=== PATIENT | male | born 1995 | race Caucasian/White ===

== ENCOUNTER 2023-10-20 11:25 | Emergency (ER) | payer OTHER, SELFPAY ==
[2023-10-20 11:28] VITALS: BP 140/73; PULSE 112; TEMP 36.4; O2SAT 99; BMI 36.3
--- NOTE | 2023-10-20 11:31 | XR_ITS ---
The [address] [id number] Patient Name: JOVAN MARTINEZ MRN: [id number] date: 1995 Sex: M Assigned Patient Location: ER Current Patient Location: Accession/Order Number: [id number] Exam Date: 10/20/2023 11:36 Report Date: 10/20/2023 12:05 At the request of: NIKKI GAMBOA Procedure: XR hand RT min 3V PROCEDURE: XR hand RT min 3V HISTORY: pain, injury boxing ; pain and swelling of right hand COMPARISON: None. FINDINGS: BONES:Slightly oblique fracture through mid diaphysis of fourth metacarpal with posterior displacement of the distal fragment two thirds of the bone width. No medial or lateral deviation. No intra-articular extension. SOFT TISSUES:No visible soft tissue swelling. EFFUSION:None visible. OTHER: Negative. XR/XR hand RT min 3V IMPRESSION: 1. Acute, displaced fracture of the fourth metacarpal. Electronically authenticated by: ERASMO REYES Date: 10/20/2023 12:05
--- NOTE | 2023-10-20 11:34 | ED_ITS ---
HPI HPI - Extremity Injury (Upper) General Chief Complaint: Extremity Injury, Upper Stated Complaint: HAND INJURY Time Seen by Provider: 10/20/23 11:30 Source: patient Mode of arrival: walk-in Limitations: no limitations History of Present Illness HPI narrative: 28-year-old male presents for right hand pain. About a week ago he states he was messing around and punched a piece of wood. He complains of pain on the ulnar side of his right hand and he is right-handed. It has been swollen and throbbing and the pain is moderate. No other injury was sustained, no pain in the wrist. He has not had this looked at until today. Related Data Home Medications ?Medication ?Instructions ?Recorded ?Confirmed No Known Home Medications 10/20/23 10/20/23 Allergies Allergy/AdvReac Type Severity Reaction Status Date / Time No Known Drug Allergies Allergy Verified 10/20/23 11:31 Opioid HPI Opioid Management Most Recent Pain and Opioid Data: No Data to Display Review of Systems ROS Narrative A ten point review of systems is negative except as noted above. Exam Narrative Exam Narrative: Nurses note and vital signs reviewed and patient is not hypoxic. General: The patient appears well and in no apparent distress. Patient is resting comfortably on cart. Skin: Warm, dry, no pallor noted. There is no rash noted. Head: Normocephalic, atraumatic Eye: Normal conjunctiva, no drainage Ears, Nose, Mouth, and Throat: oral mucosa is moist. Nares patent. Cardiovascular: Regular Rate and Rhythm Respiratory: Patient is in no distress, no accessory muscle use, lungs are clear to auscultation, no wheezing, rales or rhonchi Back: non-tender GI: Soft and nontender. Musculoskeletal: The right hand is swollen. The right wrist is nontender. He has a very superficial abrasion at the base of the fourth finger on the extensor side. No rotational deformity of his fingers which have good range of motion. Neurological: A&O, normal speech Psychiatric: Cooperative Constitutional Vital Signs, click to edit/add: Last Vital Signs Temp 97.6 F 10/20/23 11:28 Pulse 112 H 10/20/23 11:28 Resp 16 10/20/23 11:28 BP 140/73 10/20/23 11:28 Pulse Ox 99 10/20/23 11:28 O2 Del Method Room Air 10/20/23 11:28 Course Vital Signs Vital signs: Vital Signs Temperature 97.6 F 10/20/23 11:28 Pulse Rate 112 H 10/20/23 11:28 Respiratory Rate 16 10/20/23 11:28 Blood Pressure 140/73 10/20/23 11:28 Pulse Oximetry 99 10/20/23 11:28 Oxygen Delivery Method Room Air 10/20/23 11:28 Temperature 97.6 F 10/20/23 11:28 Pulse Rate 112 H 10/20/23 11:28 Respiratory Rate 16 10/20/23 11:28 Blood Pressure 140/73 10/20/23 11:28 Pulse Oximetry 99 10/20/23 11:28 Oxygen Delivery Method Room Air 10/20/23 11:28 MDM - Extremity Injury (Upper) MDM Narrative Medical decision making narrative: X-rays shows a displaced fourth metacarpal fracture. Case discussed with Dr. Smith and we are sending the patient directly to his office from here without a splint on at Dr. Smith's request. Findings were discussed with the patient and the probable need for surgery was discussed with the patient as well. Differential Diagnosis Differential diagnosis: Likely other (Hand contusion, hand fracture) Imaging Data Right hand x-ray: My impression: The placed fourth metacarpal fracture, midshaft Discharge Plan Discharge Stand Alone Forms: Portal Instructions Chief Complaint: Extremity Injury, Upper Clinical Impression: Fracture of metacarpal Patient Disposition: Home, Self-Care Time of Disposition Decision: 11:51 Condition: Good Mode of Transportation: Private Vehicle Prescriptions / Home Meds: No Action No Known Home Medications Print Language: Icelandic Instructions: Hand Fracture (ED) Additional Instructions: Go straight to Dr. Smith's office. Referrals: Physician,Non-Staff, MD [Primary Care Provider] - 1 week
== END 2023-10-20 11:59 | disposition home or self-care (01) ==
PROVIDERS: Emergency Provider Emergency Medicine
DX: S62.304A Unspecified fracture of fourth metacarpal bone, right hand, initial encounter for closed fracture (principal); W22.09XA Striking against other stationary object, initial encounter
CPT/HCPCS: 73130; 99283